=== PATIENT | female | born 1985 | race Caucasian/White ===

== ENCOUNTER 2019-04-26 08:43 | Inpatient (IN) | payer OTHER ==
[~2019-04-26] VITALS: Ht 175.3 cm; Wt 88.5 kg
[2019-04-26 08:50] VITALS: BP 108/56
[2019-04-26] MEDS ORDERED: LEVEMIR FL100 UNIT/2 SUBQ (09:11)
[2019-04-26] MEDS ORDERED: NOVOLOG FL100 UNIT/M SUBQ (09:12)
[2019-04-26 09:25] LABS: ABSOLUTE NEUTROPHILS 3.9 thou/uL (1.4-8.2); BASOPHILS 0.7 % (0.0-2.0); EOSINOPHILS 2.5 % (0.0-3.0); HEMOGLOBIN 12.7 gm/dL (12.0-15.0); LYMPHOCYTES 22.7 % (24.0-44.0); MCH 31.5 pg (26.0-34.0); MCHC 34.2 g/dL (28.0-37.0); MCV 91.9 fL (80.0-100.0); MONOCYTES 7.6 % (1.0-8.0); PLATELET COUNT 225 thou/uL (150-400); POLYS 66.5 % (36.0-66.0); RBC 4.03 mil/uL (4.20-5.00); RDW 12.7 % (10.5-14.5); WBC 5.9 thou/uL (4.0-11.0)
[2019-04-26 09:42] LABS: CALCIUM 9.1 mg/dL (8.5-10.1); CREATININE 0.8 mg/dL (0.6-1.0); POTASSIUM 3.7 mmol/L (3.5-5.1)
[2019-04-26 09:47] LABS: ALBUMIN 3.3 g/dL (3.4-5.0); TOTAL BILIRUBIN 0.9 mg/dL (<0.1-1.0); TOTAL PROTEIN 6.4 g/dL (6.4-8.2)
[2019-04-26 11:25] LABS: URINE BILIRUBIN NEGATIVE (Negative); URINE BLOOD NEGATIVE (Negative); URINE CLARITY CLEAR; URINE COLOR YELLOW; URINE GLUCOSE-RANDOM* NEGATIVE (Negative); URINE KETONES NEGATIVE (Negative); URINE LEUKOCYTES NEGATIVE (Negative); URINE NITRITE NEGATIVE (Negative); URINE PROTEIN (DIPSTICK) NEGATIVE (Negative); URINE UROBILINOGEN 0.2 E.U./dl (0.2-1.0)
[2019-04-26 13:55] LABS: TSH 1.589 uIU/mL (0.358-3.740)
[2019-04-26 14:56] VITALS: BP 124/70
--- NOTE | 2019-04-26 16:41 | NUR ---
PT ADMITED FROM ER. ALERT AND ORIENTED. ADMISSION HX AND ASSESSMENT COMPLETED. PT ORIENTED TO THE ROOM AND THE CALL LIGHT SYSTEM. NPO AFTER MIDNIGHT. SR ON TELE. DENIES PAIN OR DISCOMFORT. WILL CONTINUE TO MONITOR.
[2019-04-26 17:25] VITALS: BP 104/64
[2019-04-26 20:43] VITALS: BP 113/69
[2019-04-27 04:51] LABS: HEMATOCRIT 36.5 % (37.0-47.0); HEMOGLOBIN 12.1 gm/dL (12.0-15.0); MCH 31.1 pg (26.0-34.0); MCHC 33.2 g/dL (28.0-37.0); MCV 93.6 fL (80.0-100.0); RBC 3.9 mil/uL (4.20-5.00)
[2019-04-27 05:09] LABS: CALCIUM 8.3 mg/dL (8.5-10.1); CREATININE 0.7 mg/dL (0.6-1.0); MAGNESIUM 1.7 mg/dL (1.8-2.4); POTASSIUM 4.1 mmol/L (3.5-5.1)
[2019-04-27 05:31] VITALS: BP 94/9
[2019-04-27 08:15] VITALS: BP 95/54
--- NOTE | 2019-04-27 09:11 | NUR ---
ASSESSMENT CHARTED. PATIENT PREPING FOR COLONOSCOPY TODAY. SHE DID NOT COMPLETE PREP PRIOR TO MIDNIGHT NPO. LATEX ALLERGY. UP AT [facility] IN ROOM.
[2019-04-27 12:00] VITALS: BP 101/58
--- NOTE | 2019-04-27 12:17 | NUR ---
ORDER FOR PT EVAL AND TREAT RECEIVED. ENTERED ROOM TO SPEAK WITH Pt. PER Pt AND RN, Pt HAS BEEN UP AD [facility] SINCE ARRIVAL. Pt REPORTING THAT SHE DOES NOT NEED PHYSICAL THERAPY SERVICES. Pt HAS BEEN GETTING UP WITHOUT DIFFICULTIES. NO ACUTE PT NEEDS. ACUTE PT TO SIGN OFF. PLEASE CONSIDER RE-CONSULTING PT IF Pt EXPERIENCES DECLINE IN FUNCTIONAL MOBILITY, ENDURANCE, BALANCE, ETC.
--- NOTE | 2019-04-27 15:14 | NUR ---
PER RN AND PATIENT, PATIENT UP AD [facility] WITH NO SAFETY CONCERNS. PATIENT POLITELY REFUSED OT SHE REPORTED SHE HAD NO CONCERNS WITH SELF-CARE TASKS FOR A SAFE RETURN HOME. NO ACUTE OT GOALS IDENTIFIED. OT WILL BE DISCONTINUED AT THIS TIME. PLEASE RE-CONSULT IF PATIENT HAS A DECLINE IN FUNCTIONAL STATUS.
[2019-04-27] MEDS ORDERED: VITAMIN B-121000 MCG PO (16:01)
[2019-04-27 16:11] VITALS: BP 101/58
--- NOTE | 2019-04-27 16:43 | NUR ---
ASSESSMENT CHARTED - PT WITH INSULIN HELD DUE TO BEING NPO FOR COLONOSCOPTY - PROCEDURE COMPLETED THIS AFTERNOON - NORMAL - NO BLEEDING FOUND. PT KEVYN DIET POST PROCEDURE - UP AD [facility] IN ROOM - NO CO'S OF PAIN OR NAUSEA. PATIENT HOME THIS AFTETRNOON. INSTRUCTION RE HOME MEDS/ CARE AND FOLLOW GIVEN TO PATIENT - STATED UNDERSTANDING OF INSTRUCTION GIVEN. LEFT UNIT AMBULATORY HOME VIA PVT VEHICLE ACCOMAPNIED BY MOTHER. NO CO'S AT TIME OF D/C.
== END 2019-04-27 17:08 | disposition home or self-care (01) | DRG 379 ==
LOC: ER 08:43 → 2N 13:14 → EROBS 13:14 → 2N 14:50
PROVIDERS: Emergency Medicine; ADMIT Internal Medicine
PROC: 0DJD8ZZ Inspection of Lower Intestinal Tract, Via Natural or Artificial Opening Endoscopic (ICD-10-PCS; principal; 2019-04-27)
DX: K62.5 Hemorrhage of anus and rectum (principal); E11.9 Type 2 diabetes mellitus without complications; Z88.1 Allergy status to other antibiotic agents; Z91.040 Latex allergy status; Z87.891 Personal history of nicotine dependence; Z79.899 Other long term (current) drug therapy
CPT/HCPCS: 10081; 62110; 62900; 70005